=== PATIENT | female | born 1970 | race Caucasian/White ===

== ENCOUNTER → 2017-05-30 | Outpatient (CLI) | payer OTHER ==
[~2017-05-30] MED LIST: MTR600X PO; OXYC-643 PO
== END | disposition home or self-care (01) ==
LOC: C.LABSPEC 17:20
PROVIDERS: ATTEND Dentist Oral and Maxillofacial Surgery
DX: K13.29 Other disturbances of oral epithelium, including tongue (principal)

== ENCOUNTER → 2017-06-20 | Outpatient (CLI) | payer OTHER | END | disposition home or self-care (01) | LOC: C.LABSPEC 15:05 | PROVIDERS: ATTEND Dentist Oral and Maxillofacial Surgery | DX: B49 Unspecified mycosis (principal); K13.29 Other disturbances of oral epithelium, including tongue ==

== ENCOUNTER → 2017-11-18 | Outpatient (CLI) | payer OTHER ==
--- NOTE | 2017-11-19 14:09 | MAMMOGRAPHY REPORT ---
BILATERAL DIGITAL SCREENING MAMMOGRAM TOMOSYNTHESIS WITH CAD: 11/18/2017 CLINICAL HISTORY: Routine screening. TECHNIQUE: Breast tomosynthesis in addition to standard 2D mammography was performed. Current study was also evaluated with a Computer Aided Detection (CAD) system. COMPARISON: Comparison is made to exam dated: 07/02/2011 mammogram - [facility]. BREAST COMPOSITION: The tissue of both breasts is heterogeneously dense, which may obscure small mas ses. FINDINGS: There is newly visualized grouping of microcalcifications in the approximate 12:00 posteri or right breast, for which additional spot magnification views are recommended. A possible 6 mm mass in the lateral, middle one third of the right breast, best seen on the CC view could represent a lym ph node although additional spot compression tomosynthesis views and possible ultrasound are recommen ded. A questionable area of architectural distortion in the middle one third of the left breast gayathri g the posterior nipple line on the CC view which could represent normal overlapping tissue although a dditional spot compression tomosynthesis views and possible ultrasound are recommended. No other suspicious mass, architectural distortion or cluster of microcalcifications is seen bilatera lly. IMPRESSION: ACR BI-RADS CATEGORY 0: INCOMPLETE EVALUATION: NEED ADDITIONAL IMAGING EVALUATION The newly visualized grouping of microcalcifications in the 12:00 posterior right breast, possible 6 mm mass in the lateral right breast and possible area of architectural distortion in the central left breast need additional imaging evaluation. The patient will be called to schedule an appointment. Approximately 10% of breast cancers are not detected with mammography. A negative mammographic report should not delay biopsy if a clinically suggestive mass is present. Kizzy Ramirez M.D. ay/:11/18/2017 15:47:55 On Site Services Specialist: Deanna SALAZAR(Vanessa)(M), [facility] letter sent: Addl Imaging 0 BI-RADS Code: ACR BI-RADS Category 0: Incomplete Evaluation: Need Additional Imaging Evaluation
== END | disposition home or self-care (01) ==
LOC: C.MAMM 15:01
PROVIDERS: ATTEND Obstetrics & Gynecology
DX: Z12.31 Encounter for screening mammogram for malignant neoplasm of breast (principal); R92.0 Mammographic microcalcification found on diagnostic imaging of breast; R92.8 Other abnormal and inconclusive findings on diagnostic imaging of breast

== ENCOUNTER → 2017-12-09 | Outpatient (CLI) | payer OTHER ==
--- NOTE | 2017-12-09 14:28 | MAMMOGRAPHY REPORT ---
BILATERAL DIGITAL DIAGNOSTIC MAMMOGRAM TOMOSYNTHESIS AND TARGETED BILATERAL ULTRASOUND: 12/09/2017 CLINICAL HISTORY: 47-year-old woman called back from screening mammography for a new grouping of micr ocalcifications in the 12:00 posterior right breast, 6 mm nodular asymmetry in the lateral right [address] and possible area of architectural distortion in the left breast. Family history of breast cancer = mother, maternal grandmother and maternal aunts. TECHNIQUE: Spot magnification right CC, MLO spot compression tomosynthesis bilateral CC and MLO views were obtained. COMPARISON: Comparison is made to exams dated: 11/18/2017 mammogram and 07/02/2011 mammogram - [facility]. BREAST COMPOSITION: The tissue of both breasts is heterogeneously dense, which may obscure small mas ses. FINDINGS: The spot magnification views of the right breast demonstrate a small grouping of punctate microcalcifications in the 12:00 middle to posterior right breast. Some of the calcifications may de monstrate teacup and on the spot magnification ML view, suggesting benign milk of calcium, others rem ain punctate in shape. When comparing to the prior available 2010 mammogram these microcalcification s are new. Although the most likely represent benign fibrocystic change/milk of calcium, given the i nterval development, a short interval follow-up right diagnostic mammogram including spot magnificati on views is recommended to ensure stability in 6 months. The spot compression tomosynthesis views of the right lateral breast do not demonstrate a persistent or obvious mass in the lateral breast in the area of possible 6 mm mass seen on screening mammography . There is a single benign rim calcification. No focal area of architectural distortion. Further e valuation with ultrasound was performed. The spot compression tomosynthesis views of the left breast do not demonstrate persistent architectur al distortion along the posterior nipple line on the spot compression CC view. No definite evidence of distortion seen on the spot compression MLO tomosynthesis images. Given the heterogeneously dense breasts further evaluation with ultrasound was also performed in the left breast. Real-time high-resolution ultrasound was performed in the lateral right breast and in the 12:00, retr oareolar and 6:00 axes of the left breast. In the right 11:00 axis, 2 cm from the nipple, there is a n oval parallel circumscribed anechoic benign simple cyst with posterior acoustic enhancement, measur ing 5.1 x 3.2 x 6.0 mm. An intramammary lymph node in the 9:00 right breast, 2 cm from the nipple me asures 5.1 mm and has a thin cortex measuring 1.2 mm. No other discrete solid or cystic mass is iden tified throughout the lateral right breast. A few anechoic benign simple cysts are identified in the left breast, particularly in the 6:00 axis, 1 cm from the nipple, measuring 4.7 x 3.6 x 5.1 mm, and a bilobed versus 2 abutting cysts in the 1:00 left breast, 3 cm from the nipple, measuring 7.6 x 3.6 x 4.4 mm. No suspicious solid mass identified in the left breast focusing in the 12:00, 1:00, retroa reolar, 5:00 and 6:00 axes. No architectural distortion is appreciated in real-time ultrasound scann ing of the left breast. IMPRESSION: ACR-BI-RADS CATEGORY 3: PROBABLY BENIGN, TARGETED ULTRASOUND ACR-BI-RADS CATEGORY 3: PRO BABLY BENIGN 1. A small grouping of punctate microcalcifications in the 12:00 middle to posterior right breast is new comparing to the prior available 2011 mammogram, but some of the microcalcifications may demonst rate tea-cupping on the spot magnification ML views suggesting benign milk of calcium. A short inter geri follow-up right diagnostic mammogram including spot magnification views is recommended to ensure stability in 6 months. 2. Partial effacement of the 6 mm nodular asymmetry versus possible mass in the lateral right breast with additional spot compression tomosynthesis views, and no suspicious sonographic correlate identi fied. This most likely represented normal overlapping fibroglandular tissue. Incidental note is mad e of a few scattered anechoic cysts in both breasts on ultrasound, compatible with benign fibrocystic change. 3. Effacement of the possible architectural distortion in the left breast along the posterior nipple line on the CC view, and no suspicious sonographic correlate identified. This most likely represent ed normal overlapping fiberglass are tissue and no further close follow-up is needed at this time. These results and recommendations were discussed with the patient at the time of the exam. She tenta tively scheduled a six-month follow-up right diagnostic tomosynthesis mammogram and possible repeat u ltrasound appointment prior to leaving our department. Approximately 10% of breast cancers are not detected with mammography. A negative mammographic report should not delay biopsy if a clinically suggestive mass is present. Kizzy Ramirez M.D. ay/:12/09/2017 12:18:16 Certified Nursing Attendant: Sri Celeste, [facility] letter sent: Follow Up Recommended 3 BI-RADS Code: ACR-BI-RADS Category 3: Probably Benign Ultrasound BI-RADS: ACR-BI-RADS Category 3: Pr obably Benign
== END | disposition home or self-care (01) ==
LOC: C.MAMM 10:01
PROVIDERS: ATTEND Obstetrics & Gynecology
DX: R92.0 Mammographic microcalcification found on diagnostic imaging of breast (principal); N64.89 Other specified disorders of breast; N60.01 Solitary cyst of right breast; N60.02 Solitary cyst of left breast

== ENCOUNTER → 2018-06-25 | Outpatient (CLI) | payer OTHER ==
--- NOTE | 2018-06-25 15:59 | MAMMOGRAPHY REPORT ---
UNILATERAL RIGHT DIGITAL DIAGNOSTIC MAMMOGRAM TOMOSYNTHESIS WITH CAD: 06/25/2018 CLINICAL HISTORY: Six-month follow-up of right breast calcifications. TECHNIQUE: The study was acquired using full field digital technology and interpreted from soft copy. Breast tomosynthesis in addition to standard 2D mammography was performed. Current study was also ev aluated with a Computer Aided Detection (CAD) system. Right CC and MLO 2D and tomosynthesis images a nd spot magnification right cc and ML views were obtained. COMPARISON: Comparison is made to exams dated: 12/09/2017 mammogram, 11/18/2017 mammogram, 12/09/2017 ul trasound, and 07/02/2011 mammogram - [facility]. BREAST COMPOSITION: The tissue of right breast is heterogeneously dense, which may obscure small mass es. FINDINGS: Spot magnification views of the right breast again demonstrate a small group of calcifications within the right upper inner quadrant. Some of the calcifications are punctate and some of the calcificati ons are smudgy and amorphous on the cc view. On the lateral view, the majority of the calcifications demonstrate layering and are therefore consistent with benign milk of calcium. The calcifications a re not significantly changed compared to the December 2017 exam. The remainder of the right breast is stable compared to prior exams, without suspicious masses, calci fications, or areas of architectural distortion noted. Nodular 5 mm asymmetry within the right later al breast on the cc view is stable dating back to the 2010 exam and is therefore considered benign. IMPRESSION: ACR BI-RADS CATEGORY 2: BENIGN Grouped calcifications in the right upper inner quadrant are not significantly changed compared to e December 2017 exam, and are benign and compatible with milk of calcium. There is no mammographic ev idence of malignancy in the right breast. Return to annual mammogram screening schedule is recommende d.(11/19/2018) The patient has been verbally notified of the results. Some breast cancers are not detected with mammography. A negative mammographic report should not ruba y biopsy if a clinically suggestive mass is present. Viola Chang M.D. /:06/25/2018 09:31:45 Marketing Strategy Manager: Regine Meng RT(R)(M), [facility] letter sent: Normal 1/2 BI-RADS Code: ACR BI-RADS Category 2: Benign
== END | disposition home or self-care (01) ==
LOC: C.MAMM 09:09
PROVIDERS: ATTEND Obstetrics & Gynecology
DX: R92.1 Mammographic calcification found on diagnostic imaging of breast (principal)